=== PATIENT | female | born 1975 | race American Indian/Alaskan Native ===

== ENCOUNTER 2018-08-18 10:33 | Emergency (ER) | payer OTHER ==
[2018-08-18 10:40] VITALS: BP 163/101
[2018-08-18] MEDS ORDERED: IBUPROFEN PO ONE (10:42)
[2018-08-18] MEDS ORDERED: FLEXERIL PO ONE (10:42)
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
== END 2018-08-18 11:33 | disposition home or self-care (01) ==
LOC: ED 10:33
DX: M54.2 Cervicalgia (principal)
CPT/HCPCS: 99282